=== PATIENT | female | born 1955 | race Caucasian/White ===

== ENCOUNTER 2022-08-26 11:06 | Observation (INO) | payer OTHER ==
[2022-08-26] VITALS (9 sets, daily range): BP systolic 113–254; BP diastolic 58–226
[~2022-08-26] VITALS: Ht 167.6 cm; Wt 74.0 kg
[2022-08-26] MEDS ORDERED: ELIQUIS5 MG PO (11:21)
[2022-08-26] MEDS ORDERED: NEURONTIN300 MG PO (11:22)
[2022-08-26] MEDS ORDERED: OXYCODONE HCL5 MG PO (11:23)
[2022-08-26] MEDS ORDERED: LEXAPRO20 MG PO (11:23)
[2022-08-26 11:24] LABS: BASOPHILS 0.7 % (0-2); EOSINOPHILS 0.6 % (0-6); HEMATOCRIT 34.7 % (35.0-50.0); HEMOGLOBIN 11.5 g/dL (12.0-18.0); MCH 32.7 (27-36); MCHC 33.1 g/dl (30-36); MCV 98.8 fl (81-99); MONOCYTES 4.5 % (0-12); NEUTROPHILS 70.2 % (39-80); PLATELET COUNT 275 K/uL (140-440); RBC 3.51 M/ul (4.3-5.7); RDW 13.6 (10.5-15.0)
[2022-08-26 11:34] LABS: PARTIAL THROMBOPLASTIN TIME 23.4 Sec (22.9-41.3)
[2022-08-26 11:36] LABS: INR 1.28 (0.80-1.30); PROTIME 15.4 Sec (11.2-14.2)
[2022-08-26 11:37] LABS: ALBUMIN 3.6 g/dL (3.4-5.0); ALBUMIN/GLOBULIN RATIO 1.06 (1.1-2.4); ANION GAP 15.9 (7-21); BILIRUBIN, TOTAL 0.6 ng/dL (0.2-1.0); BUN/CREATININE RATIO 44.85 (6.0-28.6); CALCIUM 8.7 mg/dL (8.5-10.1); CREATININE, SERUM 1.07 mg/dL (0.55-1.02); POTASSIUM 3.9 mmol/L (3.5-5.1)
[2022-08-26 16:21] LABS: ABO A; RH POSITIVE
[2022-08-26 16:22] LABS: ANTIBODY SCREEN POSITIVE
[2022-08-26 18:06] LABS: BASOPHILS 0.4 % (0-2); EOSINOPHILS 0.3 % (0-6); HEMATOCRIT 35.2 % (35.0-50.0); HEMOGLOBIN 11.5 g/dL (12.0-18.0); LYMPHOCYTES 27.7 % (24-44); MCH 32.6 (27-36); MCHC 32.6 g/dl (30-36); MCV 99.8 fl (81-99); MONOCYTES 7.2 % (0-12); NEUTROPHILS 64.4 % (39-80); PLATELET COUNT 277 K/uL (140-440); RBC 3.53 M/ul (4.3-5.7); RDW 13.7 (10.5-15.0)
--- NOTE | 2022-08-26 22:45 | EKG ---
[facility] [address] [facility] [place] [address] Signed Sinus tachycardia with frequent premature ventricular complexes Otherwise normal ECG No previous ECGs available Confirmed by Nilam Henao MD () on 08/26/2022 10:45:18 PM Electronically Signed By: NILAM HENAO MD 08/26/22 2245 PATIENT NAME: MISAEL LANGFORD Electrocardiogram DATE OF : 59 PHYSICIAN: NILAM HENAO MD REPORT #: [id number] REPORT IS CONFIDENTIAL AND NOT TO BE RELEASED WITHOUT AUTHORIZATION
--- NOTE | 2022-08-26 23:00 | NUR ---
PT WITH MULTIPLE BMS X 6 MD INFORMED AND RECTAL TUBE REQUESTED. HOWEVER NO NEW ORDERS OBTAINED. HEMOGLOBIN DOWN 2 POINTS. REPEAT CBC AT 0500.
[2022-08-27] VITALS (20 sets, daily range): BP systolic 91–129; BP diastolic 49–77
[2022-08-27 00:06] LABS: HEMOGLOBIN 9.2 g/dL (12.0-18.0); RBC 2.82 M/ul (4.3-5.7)
[2022-08-27 00:08] LABS: BASOPHILS 0.8 % (0-2); EOSINOPHILS 0.8 % (0-6); HEMATOCRIT 28.1 % (35.0-50.0); MCH 32.6 (27-36); MCHC 32.7 g/dl (30-36); MCV 99.7 fl (81-99); MONOCYTES 6.9 % (0-12); NEUTROPHILS 65.5 % (39-80); PLATELET COUNT 226 K/uL (140-440); RDW 13.6 (10.5-15.0)
[2022-08-27 05:48] LABS: NEUTROPHILS 53.4 % (39-80)
[2022-08-27 05:50] LABS: BASOPHILS 1.3 % (0-2); EOSINOPHILS 1.8 % (0-6); HEMATOCRIT 24.2 % (35.0-50.0); MCH 32.7 (27-36); MCHC 33.1 g/dl (30-36); MCV 98.9 fl (81-99); MONOCYTES 6.5 % (0-12); PLATELET COUNT 205 K/uL (140-440); RBC 2.44 M/ul (4.3-5.7); RDW 13.6 (10.5-15.0)
[2022-08-27 06:10] LABS: ALBUMIN/GLOBULIN RATIO 1.11 (1.1-2.4); ANION GAP 11.3 (7-21); BILIRUBIN, TOTAL 0.4 ng/dL (0.2-1.0); BUN/CREATININE RATIO 40.25 (6.0-28.6); CALCIUM 7.6 mg/dL (8.5-10.1); CREATININE, SERUM 0.77 mg/dL (0.55-1.02); MAGNESIUM 1.5 mg/dL (1.8-2.4); PHOSPHORUS, INORGANIC 2.9 mg/dL (2.5-4.9); POTASSIUM 3.3 mmol/L (3.5-5.1); PROTEIN, TOTAL 5.7 g/dL (6.4-8.2)
--- NOTE | 2022-08-27 06:37 | NUR ---
PT REMAINS AWAKE, ALERT AND ORIENTED X 4 WITH A GCS OF 15. PT RECIEVED MULTIPLE PRNS FOR ALCOHOL WITHDRAWALS THROUGHOUT THE NIGHT. CIWA SCORE REMAINS LOW AT THIS TIME. PT HAS BEEN IN ST THROUGHOUT THE NIGHT, NORMOTENSIVE AND A-FEBRILE. PT WITH MULTIPLE EPISODES OF MELENA THROUGHOUT THE NIGHT. PT RECIEVED BOWEL PREP AND PROTONIX. BS ACTIVE AND ABD IS SOFT AND NON TENDER. PT IS ABLE TO MOVES SELF FROM SIDE TO SIDE THROUGHOUT THE NIGHT. LABS: H/H DOWN TO 8/24, K DOWN TO 3.[address] KANG AWARE AND NEW ORDERS OBTAINED TO REPLACE ELECTROLYTES.
--- NOTE | 2022-08-27 08:16 | NUR ---
PATIENT TAKEN TO GI SUITE AT THIS TIME FOR UPPER AND POTENTIAL LOWER SCOPE. PT IS SCORING 8 ON CIWA AT THIS TIME AND GAVE 1 MG IV ATIVAN FOR THIS. PT HAD INCONTINENCE OF BOWELAND ATTENDS WERE CHANGED PRIOR TO PATIENT LEAVING. IV MAG AND IV POTASSIUM TO BE STARTED AFTER PT RETURNS. PT IS ALERT AND ORIENTED BUT TREMULOUS AND ANXIOUS. HR IN THE 120-130s WITH PVCs NOTED. PT STATES HER LAST DRINK WAS THURSDAY EVENING AND SHE "GOT A LITTLE TOO DRUNK" THAT NIGHT, AND THEN DIDN'T DRINK UNTIL THURSDAY WHEN SHE HAD A FEW WHITE CLAWS. PT STATES SHE NORMALLY DRINKS EVERY DAY OF THE WEEK, 4-6 COCKTAILS/NIGHT, BUT TRIES TO TAKE A NIGHT OFF PER WEEK.
--- NOTE | 2022-08-27 08:36 | CONS ---
[facility] [address] [place], [place] [address] Signed DATE OF CONSULTATION: 08/27/2022 CHIEF COMPLAINT: Melena. 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 She has come back to [place], [place] to visit her parents. She has been on Eliquis after having her left leg in a cast and left total hip replacement with a DVT in that leg. It has been about five years or so. Apparently, she has had multiple colonoscopies in the past. She has had several colonic polyps removed. She is quite certain that one had cancer. She is convinced that the colorectal surgeon Dr. Juan Antonio Calloway at [facility] did a laparoscopic resection of this polyp. However, we cannot find an extraction site on her abdomen. We do see laparoscopic trocar sites consistent with her hysterectomy. If indeed there was cancer in the polyp, generally she would have a full resection. She tells me now she is down to having colonoscopies every five years. She thinks her last colonoscopy was about 2018. She told me she was a stage I colon cancer and did not need any chemo or radiation therapy. She thinks the polyp came out of the proximal sigmoid colon. This morning she had woken up with shortness of breath and several black tarry stools. She came to the emergency room for evaluation. She has been tachycardic and found to be a little anemic with a hemoglobin of 11.5 with a mean cell volume of 99. She tells me she drinks 4 to 5 vodka drinks each day. She is still smoking marijuana every day before she goes to bed. BUN was up a little at 48. INR is 1.28. Liver function tests were fine along with the albumin. EKG confirmed her sinus tachycardia. A CT scan of the chest, abdomen and pelvis did not reveal any pulmonary embolism. She has some diverticulosis. She has moderate sized bilateral adnexal cyst and of course the radiologist recommended an ultrasound as followup. Krupa was admitted to our hospitalist service. She has been bowel prepped overnight. Initially, the stool was black, it seems to be clear at this point. Her hemoglobin has dropped down to below 9. I have been asked to see her as a general surgeon on-call for consideration of upper and lower endoscopy despite her Eliquis status. PAST MEDICAL HISTORY: Chronic hip pain, left lower extremity DVT about 5 years ago associated with her left hip replacement in a cast, anxiety, colon cancer possibly associated with polyp in the proximal sigmoid colon in her mid 50s. She said this was stage I and did not require chemo or radiation therapy. She has chronic pain and mild COPD along with diverticulosis. PAST SURGICAL HISTORY: Includes the left total hip replacement, several colonoscopies at [facility] in [place], [place]. She thinks the last colonoscopy was about 5 years ago. She has Electronically Signed By: GERARDO SHAIKH MD 08/27/22 0836 PATIENT NAME: KRUPA GIRON CONSULTATION DATE OF : 59 REPORT #: [id number] PHYSICIAN: GERARDO SHAIKH MD PCP: OTHER PCP REPORT IS CONFIDENTIAL AND NOT TO BE RELEASED WITHOUT AUTHORIZATION [facility] [address] [place] [id number] Signed undergone a laparoscopic hysterectomy with the ovaries left in place. SOCIAL HISTORY: She quit smoking in the 90s, although she does smoke a little marijuana every night before she goes to bed. She likes 4 to 5 vodka drinks each day. 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 She has a boyfriend but no children, of course she drives. Her parents live here in [place], [place]. She lives in [place], [place]. She is a full code. Her father is Bertha Giron at [phone]. Dr. Jimena Ramirez is her primary care provider in [place], [place]. Dr. Juan Antonio Calloway is her colorectal surgeon at [facility] in [place], [place]. FAMILY HISTORY: Dad has hypertension. Mom has hypertension. REVIEW OF SYSTEMS: She had 10 systems reviewed and we talked in detail about her hip and then her colon polyps. ALLERGIES: Sulfa. MEDICATIONS: 1. Eliquis. 2. Gabapentin. 3. Oxycodone. 4. Lexapro. PHYSICAL EXAMINATION: VITAL SIGNS: Her blood pressure is 122/64, heart rate is 108, respiratory rate 22, temperature is 99.1 degrees. She is 95% on 2 L nasal cannula. She is 5 feet 6 inches and 74 kg. Her body mass index is 26. GENERAL: Krupa is a 66-year-old female, lying supine in her ICU bed. Our nurse is at the bedside. She is alert, awake, and interactive. She does not appear in any acute distress. She is not systemically ill or toxic. Overall, she has a moderate memory for details. LUNGS: Clear to auscultation bilaterally. HEART: Tachycardic, but no murmur. ABDOMEN: Soft, flat and nontender. Digital rectal exam is not repeated. LABORATORY DATA: Her white blood count 7.8; hemoglobin was 11.5, it is now below 9. Mean cell volume is 99, neutrophils are 65; platelets were 275, down to 226. BUN is 48, creatinine 1.07. Troponin was negative. INR is 1.28. Liver function tests were negative. Albumin is Electronically Signed By: GERARDO SHAIKH MD 08/27/22 0836 PATIENT NAME: KRUPA GIRON CONSULTATION DATE OF : 59 REPORT #: [id number] PHYSICIAN: GERARDO SHAIKH MD PCP: OTHER PCP REPORT IS CONFIDENTIAL AND NOT TO BE RELEASED WITHOUT AUTHORIZATION [facility] [address] [place], [place] [address] Signed 3.6. EKG showed sinus tachycardia. RADIOGRAPHIC STUDIES: CT scan of the chest, abdomen and pelvis shows no pulmonary embolism, but diverticulosis and bilateral adnexal cysts for which an ultrasound is recommended. ASSESSMENT AND PLAN: Krupa is a 66-year-old female, who presents with melena, most likely from an upper GI bleed while on Eliquis and daily use of alcohol and marijuana. I have reviewed the above findings with her in detail. I have reviewed with her upper and lower endoscopy. We did review the risk including, but not limited to gas bloating, crampy abdominal pain, bleeding, perforation requiring surgery and missed diagnosis. We also reviewed the need for monitored anesthesia care given her acute situation as well as her overall frail nature and medical issues including the daily alcohol and marijuana use. Our greatest concern of course would be bleeding associated with the endoscopy. She has expressed understanding and would like to proceed with upper and lower endoscopy this morning. Gerardo Shaikh MD ALB/MODL /[id number] cc: MD Dr. Juan Antonio Boyle MD Copies: GERARDO SHAIKH MD ~ Electronically Signed By: GERARDO SHAIKH MD 08/27/22 0836 PATIENT NAME: KRUPA GIRON CONSULTATION DATE OF : 59 REPORT #: [id number] PHYSICIAN: GERARDO SHAIKH MD PCP: OTHER PCP REPORT IS CONFIDENTIAL AND NOT TO BE RELEASED WITHOUT AUTHORIZATION
--- NOTE | 2022-08-27 09:32 | NUR ---
REQUESTED MEDICAL RECORDS FROM [facility] AT THIS TIME.
--- NOTE | 2022-08-27 10:04 | NUR ---
08/27/22 1004 Anita Cummins 0900 PT ARRIVED IN PACU NON RESPONSIVE TO NOXIOUS STIMULI WITH OPA IN PLACE. CHIN LIFT HELD BY RN. 0905 PT REACTIVE. 09 OPA REMOVED. ORALLY SUCTIONED PT. 0912 LEAKING BLACK, LIQUID STOOL. CLEANED PT AND PLACED ATTENDS. WARM BLANKETS GIVEN. 0925 C/O URGE TO VOID AND WANTING TO USE COMMODE IN HER ROOM. 0930 TO CCU. UP TO BSC WITH 2 PERSON ASSIST. VOIDED AND HAD SMALL BLACK LIQUID STOOL. CLEANED PT AND HELPED BACK INTO BED. 0940 REPORT GIVEN TO CCU RN.
--- NOTE | 2022-08-27 10:21 | NUR ---
PATIENT RETURNS FROM UPPER ENDOSCOPY AT 0940 AND IS RESTING IN BED, DROWSY BUT RESPONDS APPROPRIATELY. PT'S HR IN THE 100s. BP ON ARRIVAL IS 100/51. PT WAS ABLE TO TRANSFER SELF FROM STRETCHER TO CCU BED. PT DID HAVE A GENERAL ANESTHESIC FOR HER SCOPE. 2 HEALING ULCERS WERE FOUND. PT REMAINING HYPOTENSIVE AND DR. HENAO UPDATED. 1 L NS BOLUS ORDERED TO BE GIVEN AND NOW INFUSING. IV POTASSIUM AND MAGNESIUM BEING REPLACED. WARM BLANKETS PROVIDED. CONTINUE TO CLOSELY MONITOR.
--- NOTE | 2022-08-27 13:16 | NUR ---
PATIENT GIVEN 1 MG IV ATIVAN FOR CIWA OF 8. PT RESTING IN BED AND HR 110-120s AT REST. PT STATES SHE FEELS ANXIOUS. D5 LR INFUSING AT 75 ML/HR AND IV POTASSIUM INFUSING WELL.
--- NOTE | 2022-08-27 13:30 | NUR ---
Spoke with pt. She states she lives in [place] and [facility] in [place]. She is a labeling associate. She is in [place] for a birthday for a family member. She states she flew in and is scheduled to go home tomorrow. She will attempt to book a flight for the weekend. She denies needs, friend will assist her. Pt does not feel she will have needs. She does state she is a heavy drinker. She declines info to stop. States she has discussed with her and have plan on cutting back. She denies any financial concerns. Plans on dc to family home and then return to [place] when cleared medically.
--- NOTE | 2022-08-27 19:59 | NUR ---
PT ASSESSED AND FOUND TO BE LAYING IN BED, ALERT AND ORIENTED X 4 WITH A GCS OF 15. PT FOLLOWS SIMPLE COMMANDS. PT WITH NO COMPLAINTS OR QUESTIONS AT THIS TIME. V/S ASSESSED. ALARM LIMITS SET. PIVS PATENT. PT LEFT WITH NURSE CALL LIGHT.
[2022-08-27 22:06] LABS: EOSINOPHILS 3.2 % (0-6); HEMATOCRIT 21.6 % (35.0-50.0); HEMOGLOBIN 7.1 g/dL (12.0-18.0); MCH 32.7 (27-36); MCHC 32.8 g/dl (30-36); MCV 99.9 fl (81-99); MONOCYTES 6.4 % (0-12); NEUTROPHILS 54.4 % (39-80); PLATELET COUNT 181 K/uL (140-440); RBC 2.16 M/ul (4.3-5.7); RDW 13.6 (10.5-15.0)
[2022-08-28] VITALS: BP 111/65
[2022-08-28 04:00] VITALS: BP 113/65
--- NOTE | 2022-08-28 05:34 | OR ---
[facility] [address], [place] [address] Signed DATE OF OPERATION: 08/27/2022 SURGEON: Gerardo Shaikh MD PREOPERATIVE DIAGNOSES: 1. Melena while on Eliquis. 2. Anemia. 3. Diverticulosis. 4. Personal history of colonic polyps. 5. History of stage I proximal sigmoid colon cancer. POSTOPERATIVE DIAGNOSES: 1. Antral gastric ulcers x2. 2. Distal gastritis. 3. GE junction at 38 cm. PROCEDURE: EGD without biopsies. FINDINGS: Krupa had 2 ulcers in her antrum that represent the source of her bleeding. No active bleeding at this time. 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 She had to have her left hip replaced and describes a cast. She developed a left lower extremity DVT. She has been on Eliquis ever since the last five years. She also describes multiple colonoscopies over the last 10 to 15 years. She has had multiple colonic polyps removed. She describes a stage I proximal sigmoid colon cancer that required surgery. However, there was no extraction site that we can find. She told me no chemo or radiation was given. She had a colonoscopy since that surgery and said everything seems to be going fine. She is known to have diverticulosis as well. She continues to drink 4 or 5 glasses of vodka and cranberry juice each day. She likes to smoke a little marijuana each night before she goes to bed. She came out to [place], [place] to visit her parents. She was feeling short of breath and had three episodes of melena. She came to the emergency room for evaluation. She was found to be anemic with a mean cell volume of 99 and a hemoglobin of 11.5. Her hemoglobin has dropped down to 8 and her platelet count dropped from 275 down to 226. INR was good at 1.2. Liver function tests were unremarkable. Albumin is good at 3.6. She has also been a little tachycardic, possibly from alcohol withdrawal, but also some Electronically Signed By: GERARDO SHAIKH MD 08/28/22 0534 PATIENT NAME: KRUPA LANGFORD OPERATIVE REPORT DATE OF : 59 REPORT #: [id number] PHYSICIAN: GERARDO SHAIKH MD PCP: OTHER PCP REPORT IS CONFIDENTIAL AND NOT TO BE RELEASED WITHOUT AUTHORIZATION [facility] [address] [place] [id number] Signed dehydration. She was admitted to the Internal Medicine Service. She received her bowel prep yesterday. She tolerated that well. I met with Krupa thing this morning. I reviewed her chart in detail including the CT scan of the chest, abdomen and pelvis. I reviewed all this with her as well. We discussed that she likely has gastritis or an ulcer. She has been on Eliquis up to and including the evening prior to her admission. We like to have our patients off Eliquis at least three days if not five for elective procedures. Consequently, I told her we would not be taking any biopsies. Also, she has had multiple colonoscopies at this point including colonoscopies following the surgery. Our chance of finding anything significant with respect to the cancer would be very low. However, she could have an AVM or diverticular bleeding. Nevertheless, I told her if we found her source of bleeding in her stomach, we would abort the colonoscopy. She understands there is risk to the procedure including but not limited to gas bloating, crampy abdominal pain, bleeding, perforation requiring surgery and missed diagnosis. Also because of her frail nature, her daily alcohol use, the anemia, we asked for an anesthesia provider to help us with increased monitoring sedation with propofol. That proved to be a wilson decision as she did require some vasopressin during the procedure. She also required some fluid resuscitation during the procedure. She had expressed understanding and wished to proceed. PROCEDURE NOTE: Krupa was taken into our endoscopy suite and placed in the supine position under general endotracheal tube anesthesia. We were able to pass the scope under direct visualization quite readily out into the stomach and into the duodenum. The duodenum and the pyloric channel were completely unremarkable. In the antrum, she has moderate gastritis. We found at least 2 ulcers and possibly a 3rd that represents the source of her bleeding. There was no active bleeding at this time. Multiple pictures were taken throughout for photodocumentation. No biopsies were taken because of the Eliquis. Upon retroflexion of the scope, there was no evidence of an obvious hiatal hernia. Her GE junction is about 38 cm from her incisors. We had withdrawn the scope up through the area of the GE junction, which was compliant without strictures. No evidence of any gastric or esophageal varices. There was no Engel's mucosa. The distal, middle and upper esophagus were unremarkable. After this, the gas was suctioned out and the gastroscope removed. Krupa tolerated the upper endoscopy quite well. We decided to abort the colonoscopy given the above findings. RECOMMENDATIONS: Krupa will be returning to her ICU bed and start on clear liquid diet. She will need to stay on a proton pump inhibitor twice a day. Electronically Signed By: GERARDO SHAIKH MD 08/28/22 0534 PATIENT NAME: KRUPA LANGFORD OPERATIVE REPORT DATE OF : 59 REPORT #: [id number] PHYSICIAN: GERARDO SHAIKH MD PCP: OTHER PCP REPORT IS CONFIDENTIAL AND NOT TO BE RELEASED WITHOUT AUTHORIZATION [facility] [address] [facility] [place], [place] [address] Signed MD IRMA Hassan/TUNDEL /[id number] cc: Dr. Juan Antonio Shaikh MD Copies: GERARDO SHAIKH MD ~ Electronically Signed By: GERARDO SHAIKH MD 08/28/22 0534 PATIENT NAME: KRUPA LANGFORD OPERATIVE REPORT DATE OF : 59 REPORT #: [id number] PHYSICIAN: GERARDO SHAIKH MD PCP: OTHER PCP REPORT IS CONFIDENTIAL AND NOT TO BE RELEASED WITHOUT AUTHORIZATION
[2022-08-28 05:37] LABS: EOSINOPHILS 4.6 % (0-6); HEMATOCRIT 22.2 % (35.0-50.0); HEMOGLOBIN 7.2 g/dL (12.0-18.0); LYMPHOCYTES 33.2 % (24-44); MCH 32.3 (27-36); MCHC 32.3 g/dl (30-36); MCV 99.9 fl (81-99); MONOCYTES 6.9 % (0-12); NEUTROPHILS 54.3 % (39-80); PLATELET COUNT 176 K/uL (140-440); RBC 2.22 M/ul (4.3-5.7); RDW 13.5 (10.5-15.0)
[2022-08-28 05:54] LABS: ALBUMIN/GLOBULIN RATIO 1.15 (1.1-2.4); ANION GAP 8.8 (7-21); BILIRUBIN, TOTAL 0.4 ng/dL (0.2-1.0); POTASSIUM 3.8 mmol/L (3.5-5.1); PROTEIN, TOTAL 5.6 g/dL (6.4-8.2)
[2022-08-28 06:02] LABS: BUN/CREATININE RATIO 7.24 (6.0-28.6); CREATININE, SERUM 0.69 mg/dL (0.55-1.02)
--- NOTE | 2022-08-28 06:08 | NUR ---
PT REMAINS AWAKE, ALERT AND ORIENTED X 4 WITH A GCS OF 15. PT FOLLOWS SIMPLE COMMANDS. ALCOHOL WITHDRAWAL SYMPTOMS APPEAR TO BE IMPROVING. ONE PRN ADMINISTERED IN ACCORDANCE TO THE CIWA PROTOCOL. PT HAS BEEN IN A NSR TO ST, NORMOTENSIVE AND A-FEBRILE. RESPIRATIONS REMAIN NON-LABORED. PT WITH NO BLACK TARRY STOOLS THROUGHOUT THE NIGHT. PT WITH MARGINAL U/O. PT FEELS STEADY ON HER FEET AND DENIES ANY SOB, DIZZINESS OR LIGHT HEADEDINESS. LABS: H/H 7.2/22, PLTS 176, NA 140, K 3.8 AND CREATININE .69.
[2022-08-28 07:00] VITALS: BP 133/75
--- NOTE | 2022-08-28 07:45 | NUR ---
PT AWAKE SITTING UP IN BED WATCHING TV, ORIENTED. CLEAR BREAKFAST TRAY PROVIDED. PT DENIES FURTHER NEEDS AT THIS TIME. CALL LIGHT IN REACH.
[2022-08-28 08:00] VITALS: BP 124/69
--- NOTE | 2022-08-28 08:30 | NUR ---
Discussed in 0830 meeting. Pt will dc to home today.
--- NOTE | 2022-08-28 09:04 | NUR ---
ATIVAN 1 MG IV GIVEN FOR ANXIETY.
--- NOTE | 2022-08-28 09:56 | NUR ---
IN ROOM ROUNDING ON PT - UPDATED POC DISCUSSED WITH PT TO DC HOME TO PARENTS HOUSE TODAY, PT DENIES CONCERNS AND ALL QUESTIONS ANSWERED.
[2022-08-28] MEDS ORDERED: ESTRADIOL1 EAC7 TD (10:34)
[2022-08-28] MEDS ORDERED: VITAMIN B-1100 M1 PO (10:35)
[2022-08-28] MEDS ORDERED: VITAMIN D325 MCG PO (10:35)
[2022-08-28] MEDS ORDERED: TYLENOL EXTRA500 MG PO (10:35)
[2022-08-28] MEDS ORDERED: VITAMIN B-121000 MCG PO (10:36)
--- NOTE | 2022-08-28 10:36 | NUR ---
MED REC COMPLETE
--- NOTE | 2022-08-28 10:44 | NUR ---
PT UP AMBULATING IN HALLWAY WITH STANDBY ASSIST - PT MINIMALLY SYMPTOMATIC WITH SLIGHT DIZZINESS WITH THIS, DENIES SOB. BACK TO BED WITH LINENS CHANGE AND ORAL CARE COMPLETE.
[2022-08-28 12:00] VITALS: BP 134/66
[2022-08-28] MEDS ORDERED: CIPROFLOXACIN500 MG PO (12:13)
[2022-08-28] MEDS ORDERED: PROTONIX40 MG PO (12:13)
[2022-08-28] MEDS ORDERED: ATIVAN0.5 MG PO (12:14)
--- NOTE | 2022-08-28 13:10 | NUR ---
DC EDUCATION PROVIDED, PT VERBALIZES UNDERSTANDING, NO FUTHER QUESTIONS AT THIS TIME. IV SITE DC'D WNL. PT SENT WITH EXTRA ATTENDS FOR LOOSE STOOL CONCERN. HARD SCRIPT IN PT POSESSION IN GREEN BAG.
--- NOTE | 2022-08-28 13:17 | NUR ---
PT LIVES IN [place], HERE VISITING FAMILY. PT SAID THIS EXPERIENCE HAS SHOWN HER SHE NEEDS TO CHANGE HER DRINKING HABIT. NOT WILLING TO SAY HOW, MEDS AND HER ALCOHOL CONSUMPTION HAVE CREATED THIS SITUATION. PT REQUESTED PRAYER, GAVE G.POST AND BLESSING.
--- NOTE | 2022-08-28 15:03 | NUR ---
RECEIVED PHONE CALL FROM PT STATING LORAZEPAM RX WAS NOT FILLABLE BY [facility] DUE TO "COPY ONLY" PRINTED UNDER DRUG NAME. ADAM IN PHARMACY CONSULTED, WILL CALL IN RX TO PHARMACY. PT NOTIFIED.
[2022-08-29 07:05] LABS: ANTIBODY IDENTIFICATION Anti-K
== END 2022-08-28 13:15 | disposition home or self-care (01) ==
LOC: ED 11:06 → CCU 11:12 → ED 11:12 → CCU 11:12
PROVIDERS: Colon & Rectal Surgery; Emergency Medicine; ADMIT Family Medicine; ATTEND Family Medicine
PROC: 0DJ08ZZ Inspection of Upper Intestinal Tract, Via Natural or Artificial Opening Endoscopic (ICD-10-PCS; principal; 2022-08-27 09:45)
DX: K25.4 Chronic or unspecified gastric ulcer with hemorrhage (principal); I16.0 Hypertensive urgency; Z86.718 Personal history of other venous thrombosis and embolism; Z79.01 Long term (current) use of anticoagulants; F10.90 Alcohol use, unspecified, uncomplicated; Y90.9 Presence of alcohol in blood, level not specified; Z88.2 Allergy status to sulfonamides; E87.6 Hypokalemia; E83.42 Hypomagnesemia; K92.1 Melena; Z86.010 Personal history of colon polyps; Z85.038 Personal history of other malignant neoplasm of large intestine; K29.71 Gastritis, unspecified, with bleeding
CPT/HCPCS: 00731; 36415; 71260; 74174; 80053; 83735; 84100; 84484; 85025; 85610; 85730; 86850; 86870; 86900; 86901; 87338; 93005; 93010; 96365; 96366; 96367; 96368; 96375; 96376; 99285-25; C9113; G0378; J0330; J0690; J2060; J2405; J2704; J3411; J3475; J3480; J3490; J7030; J7040; J7060; J7121; Q9967